=== PATIENT | female | born 1955 | race Caucasian/White ===

== ENCOUNTER 2017-12-26 12:27 | Emergency (ER) | payer OTHER ==
[~2017-12-26] VITALS: Ht 157.5 cm; Wt 64.6 kg
[2017-12-26 12:30] VITALS: Ht 157.5 cm; Wt 64.6 kg
[2017-12-26 13:07] LABS: BASOPHIL % 0.3 % (0-2); PLATELET COUNT 266 x10^3mcL (130-400); RED CELL DISTRIBUTION WIDTH 12.8 % (11.5-14.5)
[2017-12-26 13:13] LABS: CALCIUM 8.5 mg/dL (8.5-10.1); CREATININE SERUM 1.1 mg/dL (0.6-1.0); POTASSIUM SERUM 4.4 mmol/L (3.5-5.1)
[2017-12-26 13:16] LABS: BILIRUBIN TOTAL 0.2 mg/dL (0.20-1.00); MAGNESIUM 2.4 mg/dL (1.8-2.4); TOTAL PROTEIN, SERUM 6.2 g/dL (6.4-8.2)
[2017-12-26 13:32] LABS: ALBUMIN 2.4 g/dL (3.4-5.0)
[2017-12-26 15:56] LABS: microscopic required? YES; urine erythrocyte 1+ (NEGATIVE)
[2017-12-26 16:18] LABS: AMPHETAMINE QUAL UR NONE DETECTED (See below)
[2017-12-26 19:02] VITALS: BP 160/73
== END 2017-12-26 19:02 | disposition short-term general hospital (02) ==
LOC: ED 12:27
PROVIDERS: Emergency Medicine
DX: I50.9 Heart failure, unspecified (principal); E11.22 Type 2 diabetes mellitus with diabetic chronic kidney disease; N18.3 Chronic kidney disease, stage 3 (moderate); J90 Pleural effusion, not elsewhere classified; R09.02 Hypoxemia
CPT/HCPCS: 36600; 82962; 83880; J1940; Q0092